=== PATIENT | male | born 1990 | race Caucasian/White ===

== ENCOUNTER → 2025-01-26 | Outpatient (REF) | payer OTHER | LOC: M SMT 12:59 | PROVIDERS: ATTEND Urology | DX: Z30.2 Encounter for sterilization (principal) ==

== ENCOUNTER → 2025-03-30 | Outpatient (REF) | payer OTHER ==
[2025-03-30 11:25] LABS: SEMEN APPEARANCE OPAQUE (OPAQUE); SEMEN VISCOSITY LIQUID (LIQUID); SEMEN VOLUME 4.1 ml (2.0-5.0); WBC CONCENTRATION <=1 M/ml (<=1 M/ml)
== END ==
LOC: M LAB REF 11:20
PROVIDERS: ATTEND Urology
DX: Z30.8 Encounter for other contraceptive management (principal)